=== PATIENT | female | born 1985 | race Caucasian/White ===

== ENCOUNTER 2017-11-05 15:51 | Emergency (ER) | payer SELFPAY ==
[~2017-11-05] VITALS: Ht 162.6 cm; Wt 70.9 kg
[2017-11-05 16:25] VITALS: BP 115/89; Ht 162.6 cm; Wt 70.9 kg
== END 2017-11-05 19:40 | disposition home or self-care (01) ==
LOC: ED 15:51
DX: H60.502 Unspecified acute noninfective otitis externa, left ear (principal)

== ENCOUNTER 2019-12-21 19:01 | Emergency (ER) | payer MEDICAID ==
[~2019-12-21] VITALS: Ht 167.6 cm; Wt 74.4 kg
[2019-12-21 19:12] VITALS: Ht 167.6 cm; Wt 74.4 kg
[2019-12-21 20:15] LABS: BASOPHIL % 0.4 % (0-2); PLATELET COUNT 268 x10^3mcL (130-400); RED CELL DISTRIBUTION WIDTH 12.1 % (11.5-14.5)
[2019-12-21 21:07] LABS: microscopic required? NO
[2019-12-21 21:11] LABS: urine erythrocyte NEGATIVE (NEGATIVE)
[2019-12-21 22:12] VITALS: BP 127/84
== END 2019-12-21 22:12 | disposition home or self-care (01) ==
LOC: ED 19:01
PROVIDERS: Emergency Medicine
DX: O20.0 Threatened abortion (principal)
CPT/HCPCS: 36415

== ENCOUNTER 2020-01-19 09:24 | Emergency (ER) | payer MEDICAID ==
[~2020-01-19] VITALS: Ht 162.6 cm; Wt 73.5 kg
[2020-01-19 09:32] VITALS: Ht 162.6 cm; Wt 73.5 kg
[2020-01-19 10:01] VITALS: BP 138/90
== END 2020-01-19 10:01 | disposition home or self-care (01) ==
LOC: ED 09:24
DX: H92.03 Otalgia, bilateral (principal); R09.81 Nasal congestion